=== PATIENT | female | born 1955 | race American Indian/Alaskan Native ===

== ENCOUNTER 2017-11-16 08:21 | Outpatient (CLI) | payer OTHER ==
--- NOTE | 2017-11-18 09:35 | Vascular Lab Report ---
LOWER EXTREMITY ARTERIAL PHYSIOLOGIC STUDY: REASON FOR EXAM: Peripheral arterial disease. COMMENTS ON THE RIGHT: Ankle brachial index is 1.10. This value is normal. Toe brachial index is 1.32. This value is normal. Wound healing is likely. Pulse volume recording at the level of the ankle is normal. Exercise testing is within normal limits. COMMENTS ON THE LEFT: Ankle brachial index is 1.13. This value is normal. Toe brachial index is 0.86. This value is normal. Wound healing is likely. Pulse volume recording at the level of the ankle is normal. Exercise testing is within normal limits. IMPRESSION: RIGHT: No hemodynamically significant arterial disease. LEFT:No hemodynamically significant arterial disease.
== END 2017-11-16 08:22 | disposition home or self-care (01) ==
LOC: VAS 08:21
PROVIDERS: ATTEND Internal Medicine
DX: M79.661 Pain in right lower leg (principal); M79.662 Pain in left lower leg
CPT/HCPCS: 93922